=== PATIENT | male | born 1990 | race Caucasian/White ===

== ENCOUNTER 2018-08-01 16:34 | Emergency (ER) | payer MEDICAID ==
[~2018-08-01] VITALS: Ht 180.3 cm; Wt 149.7 kg
[2018-08-01 16:37] VITALS: BP 136/77
--- NOTE | 2018-08-01 16:54 | NUR ---
PATIENT PRESENTS TO ED WITH C/O DIARRHEA X 6 DAYS, +N/V X 2DAYS PATIENT STATES ABDOMINAL PAIN OF 5/10 AT THIS TIME; VSS; PATIENT POSITIONED FOR COMFORT; HOB ELEVATED; BEDRAILS UP X2; BED DOWN. ER MD MADE AWARE OF PT STATUS.
--- NOTE | 2018-08-01 16:57 | NUR ---
Patient being evaluated by physician at bedside.
[2018-08-01] MEDS ORDERED: NACL 0.9% 1,000 ML IV ONE (17:00)
[2018-08-01] MEDS ORDERED: ONDANSETRON 4 MG/2 ML VIAL IVP ONE (17:00)
[2018-08-01 17:24] LABS: BASOPHILS % (AUTO) 0.3 % (0.0-2.0); EOSINOPHILS # (AUTO) 0.3 K/uL (0-0.4); EOSINOPHILS % (AUTO) 2.6 % (0.0-4.0); HEMATOCRIT 46.2 % (36-52); HEMOGLOBIN 15.1 g/dL (12.0-18.0); LYMPHOCYTES # (AUTO) 1.5 K/uL (2.0-11.5); LYMPHOCYTES % (AUTO) 11.9 % (20.5-51.1); MEAN CORPUSCULAR HEMOGLOBIN 28 pg (27-31); MEAN CORPUSCULAR HGB CONC 33 g/dL (33-37); MEAN CORPUSCULAR VOLUME 84.4 fL (80-94); MONOCYTES # (AUTO) 1.1 K/uL (0.8-1.0); MONOCYTES % (AUTO) 9.3 % (1.7-9.3); NEUTROPHILS # (AUTO) 9.2 K/uL (1.8-7.7); NEUTROPHILS % (AUTO) 75.9 % (42.2-75.2); PLATELET COUNT (AUTO) 248 K/uL (140-450); RED BLOOD CELL COUNT(AUTO) 5.48 MIL/uL (4.20-6.10); RED CELL DISTRIBUTION WIDTH 14.3 % (11.6-13.7); WHITE BLOOD COUNT (AUTO) 12.2 K/uL (4.8-10.8)
[2018-08-01 17:38] LABS: ANION GAP 13.1 (8-16); CARBON DIOXIDE 28.3 mmol/L (21-32); CREATININE 0.7 mg/dL (0.7-1.3); POTASSIUM 3.4 mmol/L (3.5-5.1)
[2018-08-01 17:47] LABS: ALBUMIN 3.4 g/dL (3.4-5.0); TOTAL BILIRUBIN 0.5 mg/dL (0.0-1.0)
[2018-08-01 18:03] VITALS: BP 124/78
== END 2018-08-01 18:02 | disposition home or self-care (01) ==
LOC: MED 16:34
DX: A08.4 Viral intestinal infection, unspecified (principal)
CPT/HCPCS: 36415; 80053; 85025; 96361; 96374; 99284; J2405; J7030

== ENCOUNTER 2021-07-01 12:56 | Emergency (ER) | payer SELFPAY ==
[~2021-07-01] VITALS: Ht 180.3 cm; Wt 163.7 kg
[2021-07-01 13:02] VITALS: BP 154/94
--- NOTE | 2021-07-01 13:07 | NUR ---
PT AMBULATED TO BED 12
--- NOTE | 2021-07-01 13:10 | NUR ---
30 Y/O MALE PRESENTS WITH INGROWN TOENAIL ON RIGHT INNER BIG TOE X3 WEEKS. PT REPORTS PAIN IS WORSENING. PT REPORTS PAIN 7/10 THAT HE DESCRIBES THROBBING AND NONRADIATING. PT TOOK IBUPROFEN WITH MILD RELIEF. PT REPORTS GREEN DISCHARGE AND NOW THERE IS DRIED BLOOD. DENIES FEVER/CHILLS/N/V. PT A/O X4 WITH EVEN AND UNLABORED RESPIRATIONS MEDHX: DENIES ALLERGIES: CODEINE
[2021-07-01] MEDS ORDERED: LIDOCAINE MPF 2% 100 MG/5 ML VIAL INJ ONE (13:15)
[2021-07-01] MEDS ORDERED: BACITRACIN OINT 500 UNITS/GM PKT TP ONE (13:15)
[2021-07-01] MEDS ORDERED: LIDOCAINE 2% 1000 MG/50 ML VIAL INJ ONE (13:20)
--- NOTE | 2021-07-01 13:43 | NUR ---
GRAEME ACSSIDY AT BEDSIDE FOR PROCEDURE
[2021-07-01] MEDS ORDERED: NAPR-54 PO (13:50)
[2021-07-01] MEDS ORDERED: BACI1PAC6 TP (13:50)
--- NOTE | 2021-07-01 14:02 | NUR ---
PATIENT'S RIGHT TOE WAS WRAPPED WITH BACITRACIN, NONADHERENT DRESSING AND GAUZE ROLL. ER PA NOTIFIED.
--- NOTE | 2021-07-01 14:04 | NUR ---
Patient discharged with v/s stable. Written and verbal after care instructions ABOUT INGROWN TOENAIL given and explained. Patient alert, oriented and verbalized understanding of instructions. Ambulatory with steady gait. All questions addressed prior to discharge. ID band removed. Patient advised to follow up with PMD. Rx of BACITRACIN AND NAPROXEN given. Patient educated on indication of medication including possible reaction and side effects. Opportunity to ask questions provided and answered.
== END 2021-07-01 14:04 | disposition home or self-care (01) ==
LOC: MED 12:56
DX: L60.0 Ingrowing nail (principal); Z79.1 Long term (current) use of non-steroidal anti-inflammatories (NSAID); Z79.2 Long term (current) use of antibiotics; Z88.5 Allergy status to narcotic agent
CPT/HCPCS: 11730; 99284; J2001

== ENCOUNTER 2022-01-04 18:24 | Emergency (ER) | payer SELFPAY ==
[~2022-01-04 18:24] MED LIST: BACI1PAC6 TP; NAPR-54 PO
--- NOTE | 2022-01-04 18:34 | NUR ---
name called no answer at this time
--- NOTE | 2022-01-04 18:41 | NUR ---
name called no answer at this time [id number]
== END 2022-01-04 18:34 | disposition left against medical advice (07) ==
LOC: MED 18:24
DX: Z53.21 Procedure and treatment not carried out due to patient leaving prior to being seen by health care provider (principal)

== ENCOUNTER 2023-09-14 17:25 | Emergency (ER) | payer SELFPAY ==
[~2023-09-14] VITALS: Ht 177.8 cm; Wt 113.4 kg
[~2023-09-14 17:25] MED LIST changes: +BACI-418 TP; -BACI1PAC6 TP
[2023-09-14 17:38] VITALS: BP 138/75; PULSE 81; RESP 18; TEMP 97; O2SAT 98
== END 2023-09-14 19:00 | disposition left against medical advice (07) ==
LOC: MED 17:25
DX: R07.89 Other chest pain (principal); Z79.1 Long term (current) use of non-steroidal anti-inflammatories (NSAID); Z79.2 Long term (current) use of antibiotics; Z88.5 Allergy status to narcotic agent
CPT/HCPCS: 93005; 99283